=== PATIENT | female | born 1980 | race Caucasian/White ===

== ENCOUNTER 2018-04-19 01:47 | Inpatient (IN) | payer BC ==
[~2018-04-19] VITALS: Ht 177.8 cm; Wt 140.9 kg
[~2018-04-19 01:47] MED LIST: PREN-3 PO
[2018-04-19 02:03] VITALS: BP 138/77
[2018-04-19] MEDS ORDERED: D5%-LACTATED RINGERS 1,000 ML IV SCH (03:15)
[2018-04-19] MEDS ORDERED: OXYTOCIN 30U/ 0.9% NaCL 500ML 500 ML IV ONE (03:15)
[2018-04-19] MEDS ORDERED: NEWBORN KIT ONE (03:19)
[2018-04-19] MEDS ORDERED: FENTANYL PF 100 MCG/2ML IVPush PRN (03:30)
[2018-04-19] MEDS ORDERED: ONDANSETRON 2MG/ML, 2ML IVPush PRN (03:30)
[2018-04-19] MEDS ORDERED: FENTANYL PF 100 MCG/2ML IV PRN (03:30)
[2018-04-19] MEDS ORDERED: CALCIUM CARBONATE 500 MG TAB.CHEW PO PRN (03:30)
[2018-04-19 03:45] LABS: BASOPHILS # (AUTO) 0.05 x10^3/uL (0-0.1); BASOPHILS % (AUTO) 0 % (0-1); EOSINOPHILS # (AUTO) 0.08 x10^3/uL (0-0.4); EOSINOPHILS % (AUTO) 1 % (1-7); LYMPHOCYTES # (AUTO) 2.66 x10^3/uL (1-3.4); LYMPHOCYTES % (AUTO) 20 % (22-44); MD NO; MEAN CORPUSCULAR HEMOGLOBIN 30.4 pg (27.0-34.8); MEAN CORPUSCULAR HGB CONC 34.7 g/dL (32.4-35.8); MEAN CORPUSCULAR VOLUME 87.5 fL (80-100); MONOCYTES # (AUTO) 0.74 x10^3/uL (0.2-0.8); MONOCYTES % (AUTO) 6 % (2-9); NEUTROPHILS % (AUTO) 74 % (42-75); PLATELET COUNT 217 x10^3/uL (130-400); RED BLOOD COUNT 4.79 x10^6/uL (3.82-5.3); RED CELL DISTRIBUTION WIDTH 13.5 % (9.6-15.2)
[2018-04-19] MEDS ORDERED: FENTANYL/BUPIV./NS/PF 250 ML EPIDCONT SCH ×2 (03:51→06:21)
[2018-04-19] MEDS ORDERED: FENTANYL PF 100 MCG/2ML ONE (03:52)
[2018-04-19] MEDS ORDERED: LACTATED RINGERS 1,000 ML IVBOLUS PRN ×2 (04:00→06:30)
[2018-04-19] MEDS: LACTATED RINGERS 1,000 ML IV SCH ×4 (04:09→22:21)
[2018-04-19 05:03] LABS: MICROSCOPIC AUTO
[2018-04-19] MEDS ORDERED: MISOPROSTOL 200 MCG TABLET ONE (05:14)
[2018-04-19] MEDS ORDERED: OXYTOCIN 30U/ 0.9% NaCL 500ML 500 ML ONE ×2 (05:14→11:04)
[2018-04-19 05:19] LABS: CULTURE INDICATED? YES
[2018-04-19] MEDS ORDERED: FENTANYL/BUPIV./NS/PF 250 ML EPIDCONT ONE (05:38)
[2018-04-19] MEDS ORDERED: BUPIVACAINE 0.25% ONE (05:38)
[2018-04-19] MEDS ORDERED: OXYTOCIN 30U/ 0.9% NaCL 500ML 500 ML IV PRN (07:54)
[2018-04-19 08:10] LABS: ALANINE AMINOTRANSFERASE 15 U/L (12-78); ALBUMIN 2.6 g/dL (3.4-5.0); ANION GAP 9 mmol/L (5-15); CALCIUM 8.6 mg/dL (8.5-10.1); CHLORIDE 109 mmol/L (98-107); CREATININE 0.67 mg/dL (0.55-1.02)
[2018-04-19 08:12] LABS: ALKALINE PHOSPHATASE 192 U/L (45-117); BILIRUBIN,TOTAL 0.3 mg/dL (0.2-1.0); TOTAL PROTEIN 6.1 g/dL (6.4-8.2)
[2018-04-19 08:13] LABS: BILIRUBIN, DIRECT < 0.1 mg/dL (0.1-0.2)
[2018-04-19 09:28] LABS: PROTEIN/CREATININE RATIO,URINE < 130 (0-200); TOTAL PROTEIN,URINE RANDOM < 5 mg/dL (0-12)
[2018-04-19] MEDS ORDERED: LACTATED RINGERS 1,000 ML INTUTE SCH (10:00)
[2018-04-19] MEDS ORDERED: LACTATED RINGERS 1,000 ML INTUTE PRN (10:00)
[2018-04-19] MEDS ORDERED: IBUPROFEN 600 MG TABLET ONE (11:04)
[2018-04-19] MEDS: IBUPROFEN 600 MG TABLET PO PRN ×2 (11:13→17:55)
[2018-04-19] MEDS ORDERED: MISOPROSTOL 200 MCG TABLET PR PRN (11:30)
[2018-04-19] MEDS ORDERED: HYDROcodone/APAP 5/325 TABLET PO PRN (11:30)
[2018-04-19] MEDS ORDERED: ACETAMINOPHEN 325 MG TABLET PO PRN ×2 (11:30)
[2018-04-19 13:40] VITALS: BP 131/80
[2018-04-19 16:00] VITALS: BP 138/78
[2018-04-19 18:48] LABS: BASOPHILS # (AUTO) 0.07 x10^3/uL (0-0.1); BASOPHILS % (AUTO) 1 % (0-1); EOSINOPHILS # (AUTO) 0.09 x10^3/uL (0-0.4); EOSINOPHILS % (AUTO) 1 % (1-7); LYMPHOCYTES # (AUTO) 2.17 x10^3/uL (1-3.4); LYMPHOCYTES % (AUTO) 15 % (22-44); MD NO; MEAN CORPUSCULAR HEMOGLOBIN 30.5 pg (27.0-34.8); MEAN CORPUSCULAR HGB CONC 34.3 g/dL (32.4-35.8); MEAN CORPUSCULAR VOLUME 89.1 fL (80-100); MEAN PLATELET VOLUME 9.6 fL (7.4-10.4); MONOCYTES # (AUTO) 0.84 x10^3/uL (0.2-0.8); MONOCYTES % (AUTO) 6 % (2-9); NEUTROPHILS % (AUTO) 78 % (42-75); PLATELET COUNT 205 x10^3/uL (130-400); RED BLOOD COUNT 4.47 x10^6/uL (3.82-5.3); RED CELL DISTRIBUTION WIDTH 13.5 % (9.6-15.2)
[2018-04-19] MEDS: OXYTOCIN 30U/ 0.9% NaCL 500ML 500 ML IV SCH (21:03)
[2018-04-19 22:00] VITALS: BP 142/85
[2018-04-19] MEDS: HYDROcodone/APAP 5/325 TABLET PO PRN (22:07)
[2018-04-19] MEDS: DOCUSATE 100 MG CAPSULE PO PRN (22:07)
[2018-04-20] MEDS: HYDROcodone/APAP 5/325 TABLET PO PRN (02:41)
[2018-04-20] MEDS: IBUPROFEN 600 MG TABLET PO PRN (02:41)
[2018-04-20 02:44] VITALS: BP 134/71
[2018-04-20] MEDS: LACTATED RINGERS 1,000 ML IV SCH (06:21)
[2018-04-20] MEDS: OXYTOCIN 30U/ 0.9% NaCL 500ML 500 ML IV SCH (07:03)
[2018-04-20 07:51] VITALS: BP 126/83
[2018-04-20] MEDS: DOCUSATE 100 MG CAPSULE PO PRN (08:00)
[2018-04-20] MEDS ORDERED: PRENATAL VIT/IRON/FA 1 EACH TABLET PO SCH (09:00)
[2018-04-20] MEDS ORDERED: IBUP-1222 PO (09:51)
[2018-04-20] MEDS ORDERED: HYDR-3240 PO (09:51)
== END 2018-04-20 13:22 | disposition home or self-care (01) | DRG 775 ==
LOC: LDOP 01:47 → LDIP 03:14 → 2NW 13:23
PROVIDERS: ADMIT Obstetrics & Gynecology; ATTEND Obstetrics & Gynecology
PROC: 10907ZC Drainage of Amniotic Fluid, Therapeutic from Products of Conception, Via Natural or Artificial Opening (ICD-10-PCS; principal; 2018-04-19)
PROC: 10E0XZZ Delivery of Products of Conception, External Approach (ICD-10-PCS; 2018-04-19)
PROC: 0KQM0ZZ Repair Perineum Muscle, Open Approach (ICD-10-PCS; 2018-04-19)
PROC: 3E0R3BZ Introduction of Anesthetic Agent into Spinal Canal, Percutaneous Approach (ICD-10-PCS; 2018-04-19)
PROC: 00HU33Z Insertion of Infusion Device into Spinal Canal, Percutaneous Approach (ICD-10-PCS; 2018-04-19)
DX: O13.4 Gestational [pregnancy-induced] hypertension without significant proteinuria, complicating childbirth (principal); Z37.0 Single live birth; O69.1XX0 Labor and delivery complicated by cord around neck, with compression, not applicable or unspecified; O70.1 Second degree perineal laceration during delivery; Z3A.39 39 weeks gestation of pregnancy
CPT/HCPCS: 36415; 80053; 81001; 82248; 82570; 84156; 84550; 85025; 86850; 86900; J3010; J2590; J7120

== ENCOUNTER 2019-03-13 06:08 | Day surgery (SDC) | payer BC ==
[~2019-03-13] VITALS: Ht 177.8 cm; Wt 119.1 kg
[~2019-03-13 06:08] MED LIST changes: +CALC0.25 PO; +HYDR-3240 PO; +IBUP-1222 PO; +METH750T2 PO; +NAPR-850 PO; +PHEN15CA2 PO; +THC PO
[2019-03-13] MEDS ORDERED: LACTATED RINGERS 1,000 ML IV SCH (06:38)
[2019-03-13 06:47] VITALS: BP 133/85
[2019-03-13] MEDS ORDERED: BUPIVACAINE/PF 0.25% ONE (06:48)
[2019-03-13] MEDS ORDERED: EPINEPHRINE 1 MG/ML, 1ML ONE (06:48)
[2019-03-13] MEDS ORDERED: SILVER NITRATE STICK TP ONE (06:49)
[2019-03-13] MEDS ORDERED: LIDOCAINE-MPF 1%, 2ML INFIL ONE (07:00)
[2019-03-13] MEDS ORDERED: ACETAMINOPHEN 500 MG TABLET PO ONE (07:00)
[2019-03-13] MEDS ORDERED: GABAPENTIN 300 MG CAPSULE PO ONE (07:00)
[2019-03-13] MEDS ORDERED: MIDAZOLAM 1 MG/ML, 2ML ONE (07:20)
[2019-03-13] MEDS ORDERED: FENTANYL PF 250 MCG/5ML ONE (07:20)
[2019-03-13 07:36] LABS: HCG UR SG 1.022 (1.003-1.030)
[2019-03-13] MEDS ORDERED: ROCURONIUM 10MG/ML,5ML ONE (07:40)
[2019-03-13] MEDS ORDERED: SUCCINYLCHOLINE 20 MG/ML, 10ML ONE (07:40)
[2019-03-13] MEDS ORDERED: CEFAZOLIN 1,000 MG ONE (07:40)
[2019-03-13] MEDS ORDERED: PROPOFOL 10 MG/ML, 20ML ONE (07:40)
[2019-03-13] MEDS ORDERED: ONDANSETRON 2MG/ML, 2ML ONE (07:40)
[2019-03-13] MEDS ORDERED: DEXAMETHASONE 4 MG/ML, 1ML ONE (07:40)
[2019-03-13] MEDS ORDERED: KETOROLAC 30 MG/1 ML IV PRN (08:00)
[2019-03-13] MEDS ORDERED: LABETALOL 5MG/ML, 20ML IV PRN (08:00)
[2019-03-13] MEDS ORDERED: OXYcodone 5 MG/5 ML ORAL.SOL UDC PO PRN (08:00)
[2019-03-13] MEDS ORDERED: METOCLOPRAMIDE 5 MG/ML, 2ML IV PRN (08:00)
[2019-03-13] MEDS ORDERED: MEPERIDINE/PF 25MG/0.5ML IVPush PRN (08:00)
[2019-03-13] MEDS ORDERED: PROMETHAZINE 25 MG/ML, 1ML IV PRN (08:00)
[2019-03-13] MEDS ORDERED: HYDROmorphone 1 MG/ML, 1ML INJ IV PRN (08:00)
[2019-03-13] MEDS ORDERED: FENTANYL PF 100 MCG/2ML IV PRN (08:00)
[2019-03-13] MEDS ORDERED: ONDANSETRON 2MG/ML, 2ML IVPush PRN (08:00)
[2019-03-13] MEDS ORDERED: hydrALAzine 20 MG/ML, 1ML IV PRN (08:00)
[2019-03-13] MEDS ORDERED: ALBUTEROL SULFATE 2.5 MG/3 ML NPPB PRN (08:00)
[2019-03-13] MEDS ORDERED: OXYcodone 5 MG/5 ML ORAL.SOL UDC ONE (09:15)
[2019-03-13] MEDS ORDERED: KETOROLAC 30 MG/1 ML ONE (09:15)
== END 2019-03-13 11:45 | disposition home or self-care (01) ==
LOC: OR 06:08
PROVIDERS: ATTEND Obstetrics & Gynecology
DX: Z30.2 Encounter for sterilization (principal); N93.9 Abnormal uterine and vaginal bleeding, unspecified
CPT/HCPCS: 58563; 58661; 81025; 88302; J0171; J0330; J0690; J1100; J1885; J2250; J2405; J2704; J3010; J3490; J7120